=== PATIENT | female | born 1970 | race Caucasian/White ===

== ENCOUNTER 2019-09-15 08:19 | Emergency (ER) | payer BC, SELFPAY ==
[2019-09-15 08:20] VITALS: BP 174/97; PULSE 100; RESP 17; TEMP 36.5; O2SAT 100; BMI 38.9
--- NOTE | 2019-09-15 08:40 | CT_ITS ---
STUDY: CT ABDOMEN AND PELVIS WITHOUT CONTRAST REASON FOR EXAM: Female, 49 years old. Abdominal pain in the right lower quadrant RADIATION DOSAGE (If Supplied By Facility): CTDIvol = ( 18.74 ) mGy, DLP = ( 1344.46 ) mGycm TECHNIQUE: Transaxial images were obtained from the dome of the diaphragm to the symphysis pubis without oral contrast, and without intravenous contrast. Sagittal and coronal images were reconstructed. Individualized dose optimization techniques were used for this CT. COMPARISON: None. FINDINGS: Lack of intravenous contrast limits evaluation of abdominal and pelvic organs. The visualized lung bases are unremarkable. The visualized portions of the heart are within normal limits. Normal liver. Normal gallbladder and extrahepatic biliary system. Normal spleen. Normal pancreas. Normal bilateral adrenal glands. Normal right kidney. Normal left kidney. Normal visualized stomach. Normal small intestine. Normal colon. The appendix is visualized and appears normal. Normal abdominal aorta. Normal inferior vena cava. Normal retroperitoneum. Normal urinary bladder. There are bilateral ovarian cysts measuring up to 4.8 x 3 cm on the left and 2 x 1.5 cm on the right. There is no free fluid in the pelvis. Uterus is retroverted. Normal abdominal wall. There is mild dextroscoliosis of the lumbar spine. CT/Abdomen/Pelvis W IV Cont ONLY IMPRESSION: No acute abdominal or pelvic pathology. Bilateral ovarian cysts are within normal limits for premenopausal patient. Electronically Signed: Brandt Edgar, at 9:54 EST Tel , Service support ,
--- NOTE | 2019-09-15 08:41 | ED.DCSUM_ITS ---
- ER Visit Summary Date of Service: 09/15/19 Chief Complaint: Right lower quadrant abdominal pain History of Present Illness: The patient is a 49 F no seen in past medical history prior uterine ablation and tubal ligation. Patient states since Friday she has had intermittent right lower quadrant abdominal pain. Lying down currently she is pain-free. No fever or chills. No dysuria. No weight loss. No nausea, vomiting or diarrhea. No constipation. She is currently having a menstrual period but states that they are meter installer than normal since she had her uterine ablation. She denies any change in her appetite. She is never had any other abdominal surgeries. Physical Examination: Noise female no acute distress. Vital signs are stable and afebrile. HEENT exam unremarkable. Neck nontender. Lungs clear to auscultation. Heart regular rhythm no murmur. Abdomen soft nondistended. Normal bowel sounds. Mildly obese. She may have a hernia in her right lower quadrant. More medial and superior to McBurney's point. There is no rebound, guarding or rigidity. Due to her body habitus the hernia is not easily palpated. The other quadrants of her abdomen completely nontender. Nondistended. No signs of obstruction. No masses appreciated. Patient is moving all 4 extremities. Back is nontender. Neurologically she is awake and alert. Test Results: CBC shows white count 7. Hemoglobin 12. Chemistries unremarkable normal creatinine gap. UA normal. CT abdomen pelvis with IV contrast shows no acute abnormality. Normal-appearing appendix. Bilateral ovarian cysts that are normal for age and are not significantly enlarged. Reviewed by me and read by the radiologist. I do not think a CAT scan shows any specific cause for her pain. She will need follow-up for possible right lower abdominal wall hernia. Emergency Department Course and Treatment: Clinically I think this is a possible abdominal wall hernia. He is much less likely to be appendicitis. She is had symptoms now 6 days. She has had no fever and no other symptoms. No specific change. We went over all test results. No peritoneal signs. Treatment Plan: #1 Motrin for pain. She will be referred to the general surgeon on-call which is Dr. Michael Wan. For evaluation for possible abdominal wall hernia. Disposition: dc Impression: Right lower quadrant abdominal pain nausea Rule out abdominal wall hernia This note was generated with [employer] software. It may contain incorrect words, spelling, and punctuation that were not noted in review of the chart prior to signing ED Disposition - Plan for ED Patient: Referrals: Care Physician,No Primary [Primary Care Provider] -
[2019-09-15] MEDS: 0.9% Normal Saline 1,000 ML 1000 ML IV (08:49)
[2019-09-15 08:57] LABS: Absolute Lymphocyte Count 2.19 X10^3/uL (0.83-4.51); Absolute Neutrophil Count 5.1 X10^3/uL (2.0-7.7); Basophil# 0.05 X10^3/uL; Basophil% 0.6 % (0-1); Eosinophil# 0.17 X10^3/uL; Eosinophils% 2.1 % (0-5); Hematocrit 39.3 % (37-47); Hemoglobin 12.6 g/dL (12.0-15.0); Lymphocyte # 2.19 X10^3/ul (4.0); Lymphocyte % 27.7 % (19-41); Mean Corp Hgb Conc 32.1 g/dL (32-36); Mean Corpuscular Hgb 27.3 pg (27.0-32.0); Mean Corpuscular Volume 85.2 fL (81-99); Monocyte# 0.42 X10^3/uL; Monocyte% 5.3 % (0-10); NRBC Flagged by Analyzer 0 % (0-5); Neutrophil # 5.06 X10^3/uL (2.7-7.7); Platelet Count 251 K/mm3 (150-450); RBC Distribution Width CV 14.1 % (11.6-14.6); RBC Distribution Width SD 43.8 fl (35.1-43.9); Red Blood Count 4.61 M/mm3 (4.2-5.4); White Blood Count 7.9 K/mm3 (4.4-11.0)
[2019-09-15 09:10] LABS: Anion Gap 6 (5-15); BUN 11 mg/dL (7-18); BUN/Creat Ratio 12.3 RATIO (10-20); Calcium,Total 8.5 mg/dL (8.5-10.1); Chloride 105 mmol/L (98-107); EST Glomerular Filtration Rate 71 mL/min (>60); Est Glom Filt Rate - Afr Amer 86 mL/min (>60); Estimated Creatinine Clearance 70.78 ml/min; Glucose 93 mg/dL (74-106); Potassium 4.2 mmol/L (3.5-5.1); Sodium Level 140 mmol/L (136-145)
[2019-09-15 09:11] LABS: Mucous, Urine 0 SEEN /hpf (<or=2+)
[2019-09-15 09:13] LABS: Color, Urine Yellow (Yellow); Glucose, Dipstick Normal (Normal); Ketone-Dipstick Negative (Negative); Leukocyte Esterase-Dipstick Negative /ul (Negative); Nitrite-Dipstick Negative (Negative); Occult Blood-Urine 25 /ul (Negative); Protein-Dipstick Negative (Negative); Specific Gravity, Urine 1.015 (1.002-1.030); Urine Bilirubin Dipstick Negative (Negative); Urine Clarity Sl. Cloudy (Clear); Urine Urobilinogen Normal (Normal)
[2019-09-15 09:21] LABS: Bacteria RARE /hpf (None Seen); Red Blood Cells-Urine 0-5 SEEN /hpf (0-5); Squamous Epithelial Cells - UA 0-5 SEEN /hpf (5-10); White Blood Cells 0 SEEN /hpf (0-5)
--- NOTE | 2019-09-15 09:23 | NURSING ---
MED SURG ACUTE GI BLEED KORMEGHANN
[2019-09-15 10:04] LABS: Internal QC Validated? YES +Cl - CLEAR BKGD; Pregnancy, Serum, hCG Quali. NEGATIVE Negative
--- NOTE | 2019-09-15 10:14 | ED.DEP ---
ED Disposition - Plan for ED Patient: Disposition: Home or Assisted Living Instructions: ABDOMINAL PAIN, Unknown Cause, (Female) Referrals: Michael Whitney MD [STAFF PHYSICIAN] - As soon as possible Additional Instructions: Follow-up with the general surgeon Dr. Michael Whitney. Your CAT scan did not give a specific cause for your pain. This may be an abdominal wall hernia. Tylenol and Motrin for pain.
== END 2019-09-15 10:24 | disposition home or self-care (01) ==
PROVIDERS: Emergency Provider Emergency Medicine
DX: R10.31 Right lower quadrant pain (principal); R11.0 Nausea
CPT/HCPCS: 74177; 80048; 81001; 84703; 85025; 96360; 99283; J7030; Q9967; A4216

== ENCOUNTER → 2019-09-16 13:26 | Outpatient (CLI) | payer BC, SELFPAY ==
[2019-09-15 08:20] VITALS: BMI 38.9
[2019-09-20 22:31] LABS: HPV Reflexed? NOT INDICATED
== END ==
PROVIDERS: Visit Provider Obstetrics & Gynecology
DX: Z12.4 Encounter for screening for malignant neoplasm of cervix (principal)
CPT/HCPCS: 88175; G0145

== ENCOUNTER → 2019-10-04 07:08 | Outpatient (CLI) | payer BC, SELFPAY ==
[2019-09-15 08:20] VITALS: BMI 38.9
--- NOTE | 2019-10-04 07:09 | BI_ITS ---
MAMMOGRAPHY - BILATERAL SCREENING REASON FOR EXAM: Female, 49 years old. Routine annual screening examination. PERTINENT HISTORY: Aunt with breast cancer. TECHNIQUE: Digital bilateral breast mary (3D mammographic acquisition) in the CC and MLO projections. 2-D mediolateral oblique (MLO) and craniocaudad (CC) views of both breasts were obtained. CAD: Full Field Digital Mammography with Computer Added Detection was performed. COMPARISON: Comparison is made with prior examination June 19, 2016 and June 12, 2015. FINDINGS: Breast Composition: There are scattered areas of fibroglandular density. There are no dominant masses or suspicious calcifications. No other significant abnormalities are identified. There has been no significant change since the prior study. BI/SCREEN MAMM (CAD) W/MARY BILAT IMPRESSION: Stable bilateral screening mammogram. Yearly follow-up mammogram recommended. (A) ASSESSMENT CATEGORY: BIRADS Category 1: Negative. A letter regarding these results will be sent to the patient by the facility within 30 days. Approximately 10% of breast cancers are not detected by mammography. A normal mammogram should not delay biopsy of a clinically suspicious abnormality. [id number] Electronically Signed: Arian Cardona, at 10:20 EST , Service support ,
== END ==
PROVIDERS: Referring Provider Obstetrics & Gynecology; Visit Provider Obstetrics & Gynecology
DX: Z12.31 Encounter for screening mammogram for malignant neoplasm of breast (principal)
CPT/HCPCS: 77063; 77067

== ENCOUNTER → 2020-11-20 14:48 | Outpatient (CLI) | payer BC, SELFPAY ==
--- NOTE | 2020-11-20 14:50 | BI_ITS ---
MAMMOGRAPHY - BILATERAL SCREENING REASON FOR EXAM: Female, 50 years old. Routine annual screening examination. PERTINENT HISTORY: Aunt with breast cancer. TECHNIQUE: Digital bilateral breast mary (3D mammographic acquisition) in the CC and MLO projections. 2-D mediolateral oblique (MLO) and craniocaudad (CC) views of both breasts were obtained. CAD: Full Field Digital Mammography with Computer Added Detection was performed. COMPARISON: Comparison is made with prior examination dated 10/04/2019 and 06/19/2016. FINDINGS: Breast Composition: There are scattered areas of fibroglandular density. There are no dominant masses or suspicious calcifications. No other significant abnormalities are identified. There has been no significant change since the prior study. BI/SCRN MAMM (CAD)W/MARY BILAT IMPRESSION: Stable bilateral screening mammogram. Yearly follow-up mammogram recommended. (A) ASSESSMENT CATEGORY: BIRADS Category 1: Negative. A letter regarding these results will be sent to the patient by the facility within 30 days. Approximately 10% of breast cancers are not detected by mammography. A normal mammogram should not delay biopsy of a clinically suspicious abnormality. [id number] Electronically Signed: Arian Cardona MD at 15:26 EST , Service support ,
== END ==
PROVIDERS: Referring Provider Obstetrics & Gynecology; Visit Provider Obstetrics & Gynecology
DX: Z12.31 Encounter for screening mammogram for malignant neoplasm of breast (principal)
CPT/HCPCS: 77063; 77067

== ENCOUNTER → 2020-11-20 17:21 | Outpatient (CLI) | payer BC, SELFPAY ==
[2020-11-22 15:36] LABS: Cancer Antigen 125 5.1 U/mL (0.0-38.1)
== END ==
PROVIDERS: Visit Provider Obstetrics & Gynecology
DX: N83.209 Unspecified ovarian cyst, unspecified side (principal)
CPT/HCPCS: 36415; 86304

== ENCOUNTER 2020-12-25 06:00 | Day surgery (SDC) | payer BC, SELFPAY ==
--- NOTE | 2020-12-20 13:42 | EKG12_ITS ---
Test Reason : PREOP Blood Pressure : / mmHG Vent. Rate : 097 BPM Atrial Rate : 097 BPM P-R Int : 154 ms QRS Dur : 070 ms QT Int : 330 ms P-R-T Axes : 049 025 069 degrees QTc Int : 419 ms Normal sinus rhythm Normal ECG Confirmed by REHAN CABRERA, LEONIDES ([id number]), online editor BRENDAN CHRISTENSEN ([id number]) on 12/25/2020 12:26:03 PM Referred By: Kal Bailey Confirmed By:LEONIDES VAN MD
[2020-12-20 16:44] LABS: Hematocrit 42.5 % (37-47); Hemoglobin 13.7 g/dL (12.0-15.0); Mean Corp Hgb Conc 32.2 g/dL (32-36); Mean Corpuscular Hgb 27.4 pg (27.0-32.0); Mean Platelet Vol. 10.1 fl (6.2-12.0); Platelet Count 287 K/mm3 (150-450); RBC Distribution Width CV 14.4 % (11.6-14.6); RBC Distribution Width SD 43.9 fl (35.1-43.9); White Blood Count 7.6 K/mm3 (4.4-11.0)
[2020-12-20 16:52] LABS: International Normalized Ratio 1.1; Prothrombin Time (Protime)PT. 13.4 SECONDS (11.7-14.9)
[2020-12-20 17:29] LABS: Creatinine, Serum 0.96 mg/dL (0.55-1.02); EST Glomerular Filtration Rate 66 mL/min (>60); Est Glom Filt Rate - Afr Amer 79 mL/min (>60)
--- NOTE | 2020-12-24 13:20 | HP.PCM_ITS ---
History and Physical Date of Admission: 12/25/20 Surgical History and Physical Marcie Styles, a 50 year old female 3 0 1 0 3, presents for RAVH/BS/LSO on December 25, 2020 at 7:30. -- Menorrhagia after HTA; Complex Left Ovarian Cyst -- Bled the whole month of May 2020 and has not had a menses since. Heavy menses which began in September. Marcie claims it started gradually; Associated signs and symptoms are bled for 3 weeks straight; known uterine fibroids; prior endometrial ablation. MEDICATIONS HISTORY: Patient is also takin. Claritin-D 24 Hour 10-240 mg tablet extended release 24 hr, One pill by mouth once a day ALLERGIES: Dcn-100, Rash, Percocet, Itchy rash, Percocet, Purpuric rash, Darvocet-N 100 and Rash Infections - Chicken pox and Measles Illnesses - allergies Accidents - None Hospitalizations - see surgery Review of Systems: GENERAL - dry skin SKIN - Denies skin changes EYES - Denies visual changes EARS - Denies difficulty hearing NOSE - Denies nasal congestion or bleeding MOUTH - Denies sore throat or difficulty swallowing NECK - Denies pain or swelling RESPIRATORY - Denies shortness of breath or wheezing CARDIOVASCULAR - Denies palpitations or chest pain GASTROINTESTINAL - Denies nausea, vomiting, diarrhea, constipation GENITOURINARY - Denies dysuria, frequency of urination, incontinence of urine MUSCULOSKELETAL - Denies joint or muscle pain NEUROLOGICAL - Denies localized numbness or weakness PSYCHIATRIC - Denies depression or anxiety ENDOCRINE - weight gain over the past 2 years HEMATO-IMMUNOLOGIC - Denies excessive bleeding with cuts SOCIAL HISTORY: Alcohol Use - RARELY Smoking - Never Diet - no particular diet Lifestyle - moderate stress lifestyle and Exercise - none Seat Belt Use - always Employer - [employer] 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 Father: Stroke. MENSTRUAL HISTORY: LMP Known?- ApproximateAmount/Duration - 5-6 DAYS, Regularity - no menses, LMP - 05/27/20, Age Onset Menarche - 12 PAST PREGNANCIES: Total Pregnancies - 4; Full Term Pregnancies - 3; Premature - 0; Abortions, Ind uced - 0; Abortions, Spontaneous - 1; Ectopics - 0; Multiple Births - 0; Living Children - 3 SURGICAL HISTORY: 1. 03/31/2014 Dx hysteroscopy, D and C, HTA, LEEP, TVTO ; Kal Bailey M.D. 2. D and C, 1991 3. Tubal, 1996 PHYSICAL EXAM BP- 150/94 Sitting, Right arm, regular cuff Weight- 241.0 lbs Height- 66 inch BMI:38.98 CONSTITUTIONAL - NAD, well nourished, and well developed SKIN - No rash, lesions, or ulcers HEENT - Normocephalic, PERRLA, EOMI NECK - No nodes, no nuchal rigidity and thyroid normal size and texture LYMPH NODES - Palpation of lymph nodes in neck and groins within normal limits LUNGS - CTA x2 without wheezes, crackles or rales CARDIAC - Regular rate and rhythm without rubs, murmurs, or gallops BREAST - No dominant masses, no tenderness, no axillary adenopathy, no nipple discharge, no skin changes ABDOMEN - Without hepatosplenomegaly, distention, masses, rebound, or guarding; normal bowel sounds; no hernias EXTREMITIES - No edema or calf tenderness NEUROLOGICAL - Cranial nerves II-XII grossly intact PSYCHIATRIC - A and O to time, place, person, mood and affect DETAILED PELVIC EXAM External Genital Vagina - non-tender without lesions Urethra/Urethral Meatus - non-tender Bladder - non-tender Vagina - vaginal flores are pink and moist without loss of rugae and no evidence of atropy Cervix - without cervical motion tenderness and has normal size and features without evident lesions Uterus - multiparous size 6 cm & wt 75-125 g Adnexa - clear without massess or tenderness ASSESSMENT/PLAN: 1. Menorrhagia, Ovarian Cyst Ot/unspec/Left and Submucous Leiomyoma Pt with prior endometrial ablation. Suspect recurrent menorrhagia due to submucous fibroids. Discussed options for treatment and pt desires proceeding with hysterectomy rather than D and C. Discussed RBAs and all questions answered. Plan RAVH/BS/LSO. CA-125 normal with septated left ovarian cyst seen on u/s.
[2020-12-25] VITALS (11 sets, daily range): BP systolic 127–162; BP diastolic 70–94; PULSE 78–99; RESP 14–17; TEMP 35.9–37.1; O2SAT 92–99; BMI 38.6
--- NOTE | 2020-12-25 | HYST_PTH ---
PATIENT: EMERITA DOWELL [place] [facility] [id number] AGE/SX: 50/F ROOM: RE12/25/[address]: Dr. Kal Bailey MD : 1970 BED: DIS: 12/26/2020 SPEC #: [id number] RECD: 12/25/20 12:55 STATUS: PAULY REMichelle #: [id number] JARON: 12/25/20 00:[address]: Kal Bailey DEPT: SURGICAL PATHOLOGY RECD BY: Jose Guadalupe Figueroa ENTERED: 12/25/20 12:56 SP TYPE: HYSTERECT OTHR DR: No Primary Care Phys Tissues: Uterus, NOS Procedures: Surgery Specimen Level V HEADER OPERATION: Lap robotic hysterectomy, bilateral salpingectomy, left oophorectomy PRE-OP DIAGNOSIS: Menorrhagia, ovarian cyst TISSUE SUBMITTED: Uterus, cervix, bilateral fallopian tubes, left ovary MICROSCOPIC DIAGNOSIS Uterus, cervix, bilateral fallopian tubes and left ovary, hysterectomy and bilateral salpingectomy and left oophorectomy: Cervix - chronic inflammation and squamous metaplasia. Endometrium - desynchronous endometrium consisting of early secretory and proliferative endometrium. - Focal changes consistent with previous endometrial ablation. Myometrium - adenomyosis. - An intramural leiomyoma (1.5 cm in greatest dimension). Right fallopian tube - hematosalpinx. Left fallopian tube - no pathologic diagnosis. Left ovary - endometriosis. - Mesothelial inclusion cyst and focal calcifications. SJ:omkar 12/26/2020 MICROSCOPIC DESCRIPTION Slides are reviewed. GROSS DESCRIPTION Received in fixative is one container labeled with the patient's name and designated uterus, cervix, bilateral fallopian tubes and left ovary. The specimen consists of a hysterectomy specimen consisting of uterus with cervix, attached right fallopian tube and attached portion of left fallopian tube and detached portion of soft tissue, ? portion of left fallopian tube and detached ovary. The uterus with cervix weighs 58 gm and measures 7.5 x 6 x 4 cm. The serosal surface is ragged and congested. The ectocervical mucosa is unremarkable. The external os is circular in contour. The endocervical canal measures 2.5 cm in length and the endocervical mucosa is unremarkable. The triangular endometrial cavity measures 3.5 cm in length and 2.5 cm in width. The endometrium is edwards, glistening without any mass lesion and measures 0.1 cm in thickness. Sections of the uterine wall reveal a edwards, nodular mass measuring 1.5 cm in greatest dimension. Sections of this mass reveals edwards whorled cut surfaces without areas of hemorrhage, necrosis or cystic degeneration. The uninvolved wall measures up to 2 cm in thickness. The right fallopian tube measures 5 cm in length and up to 1 cm in diameter. The fimbrial end is identified. The lumen of the fallopian tube is filled with bloody fluid. Sections do not reveal any mass lesion. The portion of the attached left fallopian tube measures 2 cm in length and 0.5 cm in diameter. The fimbrial end is not identified. A detached piece of soft tissue is present in the container measuring 1.5 x 1.5 x 1 cm and may represent a portion of left fallopian tube. The detached left ovary measures 2 x 1.5 x 0.5 cm. It appears to be partly disrupted. It is bisected. No obvious mass lesion is identified. Coal Chemist sections are submitted in 11 cassettes as follows: 1 - anterior cervix, 2 - posterior cervix, 3 & 4 - anterior uterine wall, 5 & 6 - posterior uterine wall, 7 - nodular mass, 8 - right fallopian tube, 9??attached portion of left fallopian tube and also the detached portion of soft tissue (detached portion left fallopian tube), 10 & 11 - left ovary, entirely submitted. / CARMELINA:omkar 12/25/20 TC:5 CPT: 01942
[2020-12-25] MEDS: Lactated Ringers 1,000 ML 100 ML IV ×2 (06:54→06:57)
[2020-12-25] MEDS: Cefotetan 2 GM in 0.9% NS 100 ML IV (07:36)
[2020-12-25] MEDS: Ropivacaine 0.5% 30 ML Vial (07:58)
--- NOTE | 2020-12-25 10:08 | PCM.OPRPT ---
Report of Operation Date of Procedure: 12/25/20 Pre-Operative Diagnosis: Submucous Fibroids, Menorrhagia, Left Ovarian Cyst Post-Operative Diagnosis: Submucous Fibroids, Menorrhagia, Left Ovarian Cyst, Adhesions Surgery/Procedure Performed:: Robotic Assisted Vaginal Hysterectomy, Bilateral Salpingectomy, Left Oophorectomy, Lysis of Adhesions Description of Surgical Findings:: 10 cm fibroid uterus with dense adhesions in the endometrial cavity. Normal-appearing right fallopian tube and ovary with evidence of prior tubal ligation. Left ovary which was densely adhered to the pelvic sidewall with approximately a 3 cm cyst present which was filled with clear fluid. Only a stump of left fallopian tube remained. Adhesions of the left ovary also to the rectosigmoid. Adhesions of the omentum to the anterior abdominal wall. Lysis of adhesions added approximately 1 hour to this procedure. shake sawyer: Saman Couch Type of Anesthesia:: General - Endotracheal Anesthesiologist: Pj Porter Specimen's removed: Uterus, bilateral fallopian tubes, left ovary Drains: Mcdaniel to straight drain Estimated Blood Loss (mL): Minimal Fluids Replaced: Crystalloid Description of Procedure: Surgeon: Kal Bailey MD, FACOG Indication: This is a 50 year old patient who has been having problems with heavy menses and a cyst noted on recent pelvic ultrasound. She is also known to have submucous fibroids. Conservative measures including a prior endometrial ablation have not been helpful. The patient has been counseled regarding the risks, benefits and alternatives of this procedure including the possibility of bleeding, infection, and injury to surrounding structures such as bowel bladder and all questions were answered. She understands that if BSO is needed that she will need to be on HRT for an indefinite period of time. Procedure: Pt taken to the operating room where, after induction of general anesthesia, the patient was prepped and draped in the usual sterile fashion and placed on a non-slip Huggy-u-vac device. Trendelenburg test was satisfactory. Bladder was drained of urine with a Mcdaniel catheter which was left in place. Anterior cervix grasped and cervix was dilated to about 3-4 mm. Uterus sounded to 8 cms. 0-Vicryl suture was placed at the 3:00 and 9:00 position of the cervix. A small Advincula Aeronautical Engineering Officer Uterine Manipulator was then placed in the uterus and attention was turned to the laparoscopic portion of the procedure. Ropivocaine 0.5% was injected approximately 2-3 cm superior to the umbilicus and an 8 mm robotic camera port was introduced directly with intraperitoneal placement confirmed with CO2 insufflation. It was noted that the uterine manipulator had perforated the anterior uterus and could not adequately manipulate the uterus. Given this the manipulator was removed and replaced in the uterine cavity under direct visualization of the laparoscope. 8 mm robotic side ports were introduced under direct visualization approximately 11 cm lateral and 2 cm inferior to the umbilical port. A 5 mm left upper quadrant port was introduced and airseal insufflation with CO2 was started. The above findings were noted. Robot was docked without difficulty and attention turned to the robotic portion of the procedure. Approximately 30 cc of Ropivicaine was used. The omental adhesion was divided at the umbilicus using bipolar cautery. Right mesosalpinx was ligated with 35 lazcano bipolar coagulation to the level of the round ligament. The left ovary was not visualized but a portion of the fallopian tube seen and ligated at the mesosalpinx to the level of the round ligament on the left. The posterior aspect of the cervix was identified and then opened for about 1 cm using 25 watt monopolar cautery. Bladder flap was opened and divided to the level of the round ligaments using monopolar cautery. Progressive bites were then ligated on each side of the cervix with 35 lazcano bipolar cautery to the uterine arteries. The anterior vaginal mucosa was entered and cervix circumscribed with monopolar cautery. Uterus and attached tubes were removed through the vagina. Pedicles were examined at at this point the left ovary was visualized and using blunt dissection was freed from the left pelvic sidewall. The infundibulopelvic ligament was ligated and ovary brought through the vaginal cuff. Following this the vaginal cuff was closed first with 0-Vicryl Mc stitches placed at each angle followed by closure of the mid-cuff with 0-Monocryl V-lock suture in two layers. Pelvis was copiously irrigated with saline and the right ureter was noted to peristalse. Bertrand was placed to help with postoperative hemostasis especially in the left adnexa. Robot was undocked and trocars were removed with as much gas as possible. Incisions were closed with 4-0 Monocryl subcuticular sutures and incisions covered with steri-strips. The patient tolerated the procedure well and was taken to the recovery room in satisfactory condition. Sponge, instruments and needle counts were all correct. There were no apparent complications of the surgery. Cefotan 2 gms IV was given prior to the procedure. Estimated Blood Loss: Minimal Specimen to Pathology: Uterus, left ovary, bilateral fallopian tubes Grafts/Implants Used: None - Complications None - Admit VTE Documentation VTE Present on Admission: Yes VTE Mechan Device Prophylaxis: SCD's VTE Pharm Prophylaxis ordered?: Yes
[2020-12-25] MEDS: Lactated Ringers 1,000 ML 150 ML IV ×3 (10:31→21:40)
[2020-12-25] MEDS: Ketorolac 30 MG/ML Syringe IV ×2 (12:52→17:06)
[2020-12-25] MEDS: Acetaminophen 500 MG Tablet 1000 MG PO (17:06)
[2020-12-25] MEDS: Enoxaparin 40 MG/0.4 ML Syringe SC (17:06)
[2020-12-25] MEDS: 0.9% Saline Lock 10 ML Syringe IV (21:40)
[2020-12-25] MEDS: Docusate Sodium 100 MG Capsule PO (21:40)
[2020-12-26] MEDS: Acetaminophen 500 MG Tablet 1000 MG PO ×2 (00:29→05:31)
[2020-12-26] MEDS: Ketorolac 30 MG/ML Syringe IV ×2 (00:30→05:32)
[2020-12-26 00:34] VITALS: BP 156/81; PULSE 76; RESP 16; TEMP 36.7; O2SAT 96
[2020-12-26] MEDS: Lactated Ringers 1,000 ML 150 ML IV (04:26)
[2020-12-26 04:28] VITALS: BP 132/79; PULSE 88; RESP 18; TEMP 36.8; O2SAT 94
[2020-12-26 06:55] LABS: Hematocrit 37.4 % (37-47); Hemoglobin 11.8 g/dL (12.0-15.0); Mean Corp Hgb Conc 31.6 g/dL (32-36); Mean Corpuscular Hgb 27.1 pg (27.0-32.0); Mean Platelet Vol. 10.6 fl (6.2-12.0); Platelet Count 240 K/mm3 (150-450); RBC Distribution Width CV 14.4 % (11.6-14.6); RBC Distribution Width SD 45.1 fl (35.1-43.9); Red Blood Count 4.35 M/mm3 (4.2-5.4); White Blood Count 7.3 K/mm3 (4.4-11.0)
[2020-12-26 07:26] LABS: EST Glomerular Filtration Rate 70 mL/min (>60); Est Glom Filt Rate - Afr Amer 85 mL/min (>60); Estimated Creatinine Clearance 70.01 ml/min
--- NOTE | 2020-12-26 07:43 | PN.OBGYN_ITS ---
Subjective: Patient without complaints. Pain well controlled with Toradol. Tolerating diet well. Minimal to no vaginal bleeding reported. Objective: Wounds are clean, dry, intact. Afebrile with stable vital signs. Hemoglobin okay. Urine output adequate. - Physical Exam Vitals/I&O's: Vital Signs Temp Pulse Resp BP Pulse Ox 98.3 F 88 18 132/79 H 94 12/26/20 04:28 12/26/20 04:28 12/26/20 04:28 12/26/20 04:28 12/26/20 04:28 Oxygen Delivery Method Room Air Weight: 239 lb 6.752 oz Body Mass Index (BMI) 38.6 Intake and Output for Last 24 Hours 12/24/20 12/25/20 12/26/20 23:59 23:59 23:59 Intake Total 3847.5 / 4347.5 1700 / 1700 Output Total 700 / 1650 1450 / 1450 Balance 3147.5 / 2697.5 250 / 250 Laboratory Results 12/26/20 06:14: WBC 7.3, RBC 4.35, Hgb 11.8 L, Hct 37.4, MCV 86.0, MCH 27.1, MCHC 31.6 L, RDW Std Deviation 45.1 H, RDW Coeff of Prince 14.4, Plt Count 240, MPV 10.6 12/26/20 06:14: Creatinine 0.90, Estim Creat Clear Calc 70.01, Est GFR (MDRD) Af Amer 85, Est GFR (MDRD) Non-Af 70 Current Medications Acetaminophen (Acetaminophen 500 Mg Tablet) 1,000 mg PO Q6 ON LICENSE OF [facility] Last Admin: 12/26/20 05:31 Dose: 1,000 mg Documented by: Docusate Sodium (Docusate Sodium 100 Mg Capsule) 100 mg PO BID ON LICENSE OF [facility] Last Admin: 12/25/20 21:40 Dose: 100 mg Documented by: Lactated Ringer's () 1,000 mls @ 150 mls/hr IV .[id number] ON LICENSE OF [facility] Stop: 12/26/20 10:49 Last Admin: 12/26/20 04:26 Dose: 150 mls/hr Documented by: Sodium Chloride () 250 mls @ 15 mls/hr IV .[id number] PRN PRN Reason: Saline Flush Sodium Chloride () 250 mls @ 15 mls/hr IV .[id number] PRN PRN Reason: Additional IVPB Infusion Ketorolac Tromethamine (Ketorolac 30 Mg/Ml Syringe) 30 mg IV Q6 ON LICENSE OF [facility] Stop: 12/26/20 18:01 Last Admin: 12/26/20 05:32 Dose: 30 mg Documented by: Loratadine (Loratadine 10 Mg Tablet) 10 mg PO DAILY ON LICENSE OF [facility] Magnesium Chloride (Magnesium Chloride 64 Mg Delay Rel.Tablet) 128 mg PO DAILY PRN PRN PRN Reason: Constipation Nutritional Formula (Lactose Free) (Ensure Enlive 120 Ml Liquid) 120 ml PO TIDCM ON LICENSE OF [facility] Last Admin: 12/25/20 12:47 Dose: Not Given Documented by: Ondansetron HCl (Ondansetron Odt 4 Mg Tablet) 4 mg PO Q6H PRN PRN PRN Reason: NAUSEA Pseudoephedrine HCl (Pseudoephedrine 60 Mg Tablet) 60 mg PO Q6H ON LICENSE OF [facility] Last Admin: 12/26/20 05:32 Dose: 60 mg Documented by: Sodium Chloride (0.9% Saline Lock 10 Ml Syringe) 10 - 40 ml IV UD PRN PRN Reason: SALINE FLUSH Last Admin: 12/25/20 21:40 Dose: 10 ml Documented by: Medical Necessity - Tobacco Use Smoking Status: Never smoker Tobacco Use: Non-smoker Assessment/Plan Doing well postoperative day #1 status post robotic assisted vaginal hysterectomy, bilateral salpingectomy, left oophorectomy and lysis of adhesions. Will discharge home when able to void on own. Plans to use Motrin and Tylenol for pain control at home.
--- NOTE | 2020-12-26 07:47 | PCM.DC.VHY ---
Discharge Diet: No Restrictions Discharge Activity: Return to Normal Activity, May Not Drive - while taking narcotic pain medications., May Shower May resume sexual activity in: 6-8 weeks Call your doctor if your incision/area has: Continuous Slow Oozing, Sudden Increased Bleeding, Increased Pain/ Swelling, Increased Redness, Foul Smelling Discharge Call your doctor if you observe: Fever of 101 or Higher, Inability to urinate, Inability to have a bowel movement, Using more than one pad per hour Allergies/Adverse Reactions: Allergies oxycodone HCl [From Percocet] Adverse Reaction (Verified 12/25/20 06:24) Itching propoxyphene napsylate [From Darvocet-N] Adverse Reaction (Verified 12/25/20 06:24) Itching Medications to take at Discharge Calcium Carb,Gluc/Mag Ox,Gluc [Calcium Magnesium Caplet] 1 tab PO DAILY 03/16/14 Loratadine/Pseudo 240/10 [Claritin-D 24 Hr] 1 tablet PO DAILY 03/16/14 Multivitamins,Therapeutic [Multivitamin] 1 tab PO DAILY 03/16/14 Docusate Sodium [Colace] 100 mg PO BID PRN PRN #60 cap 12/25/20 The following prescriptions were given: Docusate Sodium [Colace] 100 mg PO BID PRN PRN #60 cap PRN Reason: Constipation Transmission Status: Received by [facility] Primary Care Physician: Care Physician,No Primary [Primary Care Provider] - Test Results: Test results from this visit will be discussed in further detail at your follow-up appointment, if applicable. Please Follow Up With: Kal Bailey MD When: 2 to 3 weeks
--- NOTE | 2020-12-26 08:23 | NURSING ---
Mcdaniel taken out this morning at 0750am. Monica care given. Measuring hat in the toilet pt aware of discharge orders but pt must void.
[2020-12-26 08:33] VITALS: BP 104/71; PULSE 80; RESP 18; TEMP 36.8; O2SAT 100
[2020-12-26] MEDS: Docusate Sodium 100 MG Capsule PO (08:38)
[2020-12-26] MEDS: Loratadine 10 MG Tablet PO (08:38)
[2020-12-26 09:08] VITALS: O2SAT 100
--- NOTE | 2020-12-26 09:36 | NURSING ---
Pt up and voided 125cc of clr pink/pale yellow urine. PT called ride at this time.
== END 2020-12-26 09:45 | disposition home or self-care (01) ==
LOC: SDC 06:01 → AC 06:01 → MS3 10:35
PROVIDERS: Referring Provider Obstetrics & Gynecology; Visit Provider Obstetrics & Gynecology
PROC: 0UT94ZZ Resection of Uterus, Percutaneous Endoscopic Approach (ICD-10-PCS; CPT 58552; principal; 2020-12-25 07:10)
DX: D25.0 Submucous leiomyoma of uterus (principal); D25.1 Intramural leiomyoma of uterus; N92.0 Excessive and frequent menstruation with regular cycle; K66.0 Peritoneal adhesions (postprocedural) (postinfection); N83.292 Other ovarian cyst, left side; N87.9 Dysplasia of cervix uteri, unspecified; N80.0 Endometriosis of uterus; N83.6 Hematosalpinx; N80.1 Endometriosis of ovary; Z98.51 Tubal ligation status; Z20.822 Contact with and (suspected) exposure to COVID-19
CPT/HCPCS: 00944; 58552; S2900; 36415; 82565; 85027; 85610; 85730; 86850; 86900; 86901; 87426; 88307; 93005; 99251; C9803; J7120; A4216; G0463; J2405

== ENCOUNTER → 2022-02-21 | Outpatient (CLI) | payer BC, SELFPAY ==
--- NOTE | 2022-02-21 07:59 | BI_ITS ---
MAMMOGRAPHY - BILATERAL SCREENING REASON FOR EXAM: Female, 51 years old. Routine annual screening examination. PERTINENT HISTORY: Aunt with breast cancer. TECHNIQUE: Digital bilateral breast mary (3D mammographic acquisition) in the CC and MLO projections. 2-D mediolateral oblique (MLO) and craniocaudad (CC) views of both breasts were obtained. CAD: Full Field Digital Mammography with Computer Added Detection was performed. COMPARISON: Comparison is made with prior study dated 05/20/2021 and 10/04/2019. FINDINGS: Breast Composition: There are scattered areas of fibroglandular density. There is a 6.4 mm x 7.1 mm well-defined nodule in the slightly inferior central aspect of the right breast. Correlation with ultrasound is recommended. No other significant abnormalities are identified. BI/SCRN MAMM (CAD)W/MARY BILAT IMPRESSION: 6.4 mm x 7.1 mm well-defined nodule in the slightly inferior central aspect of the right breast. Correlation with ultrasound is recommended. ASSESSMENT CATEGORY: BIRADS Category 0: Incomplete. Need additional imaging evaluation. A letter regarding these results will be sent to the patient by the facility within 30 days. Approximately 10% of breast cancers are not detected by mammography. A normal mammogram should not delay biopsy of a clinically suspicious abnormality. [id number] Electronically Signed: Arian Cardona MD at 9:29 EDT ,
== END | disposition home or self-care (01) ==
LOC: OPBI 07:57
PROVIDERS: Visit Provider Obstetrics & Gynecology
DX: Z12.31 Encounter for screening mammogram for malignant neoplasm of breast (principal)
CPT/HCPCS: 77063; 77067

== ENCOUNTER → 2022-02-28 | Outpatient (CLI) | payer BC, SELFPAY ==
--- NOTE | 2022-02-28 11:00 | US_ITS ---
STUDY: ULTRASOUND BREAST - RIGHT REASON FOR EXAM: Female, 51 years old. Abnormal screening mammogram. TECHNIQUE: Axial and longitudinal images of the RIGHT breast were performed with a high resolution ultrasound transducer. # OF IMAGES: 17 COMPARISON: Comparison is made with prior mammogram dated 02/21/2022. FINDINGS: RIGHT Breast: The mammographic abnormality corresponds to a 5 mm x 6 mm x 2 mm septated cyst at the 6 o''clock position of the breast at 2 cm from the nipple. US/Breast Limited Unilateral IMPRESSION: Mammographic findings correspond to a 5 mm x 6 mm x 2 mm septated cyst at the 6 o''clock position of the breast at 2 cm from the nipple. Routine annual mammographic follow-up is recommended. ASSESSMENT CATEGORY: BIRADS Category 2: Benign. A letter regarding these results will be sent to the patient by the facility within 30 days. Electronically Signed: Arian Cardona MD at 13:43 EDT ,
== END | disposition home or self-care (01) ==
LOC: OPUS 10:57
PROVIDERS: Visit Provider Obstetrics & Gynecology
DX: N63.10 Unspecified lump in the right breast, unspecified quadrant (principal)
CPT/HCPCS: 76642

== ENCOUNTER → 2023-10-01 | Outpatient (CLI) | payer BC, SELFPAY ==
--- NOTE | 2023-10-01 07:36 | BI_ITS ---
MAMMOGRAPHY - BILATERAL SCREENING REASON FOR EXAM: Female, 53 years old. Routine annual screening examination. PERTINENT HISTORY: Aunt with breast cancer. TECHNIQUE: Digital bilateral breast mary (3D mammographic acquisition) in the CC and MLO projections. 2-D mediolateral oblique (MLO) and craniocaudad (CC) views of both breasts were obtained. CAD: Full Field Digital Mammography with Computer Added Detection was performed. COMPARISON: Comparison is made with prior study dated February 21, 2022 and November 20, 2020. FINDINGS: Breast Composition: There are scattered areas of fibroglandular density. There are no dominant masses or suspicious calcifications. Stable 6 mm well-defined nodule in the slightly inferior central aspect of the right breast. This was demonstrated to be a small cyst on prior sonogram. No other significant abnormalities are identified. There has been no significant change since the prior study. BI/SCRN MAMM (CAD)W/MARY BILAT IMPRESSION: Stable bilateral screening mammogram. Yearly follow-up mammogram recommended. (A) ASSESSMENT CATEGORY: BIRADS Category 2: Benign. A letter regarding these results will be sent to the patient by the facility within 30 days. Approximately 10% of breast cancers are not detected by mammography. A normal mammogram should not delay biopsy of a clinically suspicious abnormality. [id number] Electronically Signed: Arian Cardona MD at 9:13 EST ,
[2023-10-01 08:35] LABS: Cholesterol 169 mg/dL (200); Glucose 96 mg/dL (74-106); High Density Lipoprotein 60 mg/dL; Triglycerides 63 mg/dL; Very Low Density Lipoprotein 13 mg/dL (5-40); Vitamin D,25 Hydroxy 66.9 ng/mL
== END | disposition home or self-care (01) ==
PROVIDERS: Referring Provider Nurse Practitioner Women's Health; Visit Provider Nurse Practitioner Women's Health
DX: Z12.31 Encounter for screening mammogram for malignant neoplasm of breast (principal); Z80.3 Family history of malignant neoplasm of breast; Z13.1 Encounter for screening for diabetes mellitus; Z13.21 Encounter for screening for nutritional disorder; Z13.220 Encounter for screening for lipoid disorders
CPT/HCPCS: 36415; 77063; 77067; 80061; 82306; 82947